=== PATIENT | male | born 1970 ===

== ENCOUNTER 2018-09-19 04:19 | Inpatient (IN) | payer BC ==
[2018-09-19] MEDS ORDERED: NACL 0.9% 1000 ML 1,000 ML ONE (04:39)
[2018-09-19] MEDS ORDERED: NACL 0.9% 1000 ML 1,000 ML IV ONE (04:47)
[2018-09-19] MEDS ORDERED: SOLU-Medrol ONE (05:15)
--- NOTE | 2018-09-19 05:15 | XRay Report ---
PROCEDURE: XR CHEST 1V AP TECHNIQUE: A portable upright view the chest was obtained. HISTORY: Syncope COMPARISONS: None FINDINGS: The heart size and mediastinum appear normal. The lungs are clear. Pleural fluid is not seen. The bon es and soft tissues appear normal. IMPRESSION: Within normal limits.. This document is electronically signed by Bryon Durbin MD., September 19 2018 05:12:58 AM ET
[2018-09-19 05:18] LABS: Basophils % (Auto) 0.5 % (0.0-1.8); Eosinophils # (Auto) 0.2 K/mm3 (0.0-0.4); Eosinophils % (Auto) 2.6 % (0.0-4.3); Hematocrit 38.7 % (35.5-45.6); Lymphocytes % (Auto) 21.9 % (13.4-35.0); Mean Corpuscular HGB Conc 34 % (32-34); Mean Corpuscular Volume 91 fl (84-94); Monocytes # (Auto) 0.6 K/mm3 (0.0-0.8); Monocytes % (Auto) 6.9 % (0.0-7.3); Platelet Count 347 K/mm3 (140-440); Red Blood Count 4.27 M/mm3 (3.65-5.03)
--- NOTE | 2018-09-19 05:23 | Cat Scan Report ---
PROCEDURE: CT HEAD/BRAIN WO CON TECHNIQUE: Computerized tomography of the head was performed without contrast material. HISTORY: Syncope COMPARISONS: None . FINDINGS: Skull and scalp: Normal . Paranasal sinuses: Normal . Ventricles and subarachnoid spaces: Normal . Cerebrum: No evidence of hemorrhage, acute infarction or mass . Cerebellum and brainstem: No evidence of hemorrhage, acute infarction or mass . Vasculature: Normal . Other: None . ASPECTS: 10 IMPRESSION: There is no evidence of acute intracranial process . This document is electronically signed by Mallorie Doran DO., September 19 2018 05:21:38 AM ET
[2018-09-19 05:33] LABS: Alanine Aminotransferase 15 units/L (7-56); Albumin 3.9 g/dL (3.9-5); BUN/Creatinine Ratio 12; Blood Urea Nitrogen 22 mg/dL (9-20); Calcium 8.1 mg/dL (8.4-10.2); Hemolysis Index 4
--- NOTE | 2018-09-19 06:17 | Emergency Department Report ---
ED General Adult HPI - General Chief complaint: Syncope Stated complaint: BLOOD PRESSURE ISSUES Time Seen by Provider: 09/19/18 06:16 Source: patient, EMS Mode of arrival: Stretcher Limitations: No Limitations - History of Present Illness Initial comments: This is a 48-year-old man who is reported to have had 4 syncopal episodes per his family. At least one of them was associated with a generalized seizure. Patient did bump his head during that event. However, he does not complain of headache neck pain back pain or any other injury. He denies biting his tongue. He was not incontinent. Patient states that he was placed on a new blood pressure medicine one to 2 weeks ago. He was found to be somewhat hypotensive when he arrived. Prior to my encounter he was given a fluid bolus. On my counter he had a normal blood pressure and essentially was asymptomatic. He has no prior history of seizure. -: Gradual, minutes(s) Location: head (it is sad but does not complain of headache) Consistency: now resolved Improves with: none Worsens with: none Associated Symptoms: denies other symptoms, weakness (weak and dizzy this morning) Treatments Prior to Arrival: none - Related Data Allergies Allergy/AdvReac Type Severity Reaction Status Date / Time No Known Allergies Allergy Unverified 09/19/18 04:22 ED Review of Systems ROS: Stated complaint: BLOOD PRESSURE ISSUES Other details as noted in HPI Constitutional: weakness, other. denies: chills, fever Eyes: denies: eye pain, eye discharge, vision change ENT: denies: ear pain, throat pain Respiratory: denies: cough, shortness of breath, wheezing Cardiovascular: denies: chest pain, palpitations Endocrine: no symptoms reported Gastrointestinal: denies: abdominal pain, nausea, diarrhea Genitourinary: denies: urgency, dysuria Musculoskeletal: denies: back pain, joint swelling, arthralgia Skin: denies: rash, lesions Neurological: as per HPI (seizure). denies: headache, weakness, paresthesias Psychiatric: denies: anxiety, depression Hematological/Lymphatic: denies: easy bleeding, easy bruising ED Past Medical Hx - Past Medical History Previous Medical History?: Yes Hx Hypertension: Yes - Surgical History Past Surgical History?: Yes Additional Surgical History: appendectomy - Social History Smoking Status: Never Smoker Substance Use Type: Alcohol ED Physical Exam - General Limitations: No Limitations General appearance: alert, in no apparent distress - Head Head exam: Present: atraumatic, normocephalic - Eye Eye exam: Present: normal appearance. Absent: scleral icterus - ENT ENT exam: Present: mucous membranes moist - Neck Neck exam: Present: normal inspection - Respiratory Respiratory exam: Present: normal lung sounds bilaterally. Absent: respiratory distress - Cardiovascular Cardiovascular Exam: Present: regular rate, normal rhythm. Absent: systolic murmur, diastolic murmur, rubs, gallop - GI/Abdominal GI/Abdominal exam: Present: soft, normal bowel sounds. Absent: distended, tenderness, guarding, rebound, rigid - Rectal Rectal exam: Present: deferred - Extremities Exam Extremities exam: Present: normal inspection - Back Exam Back exam: Present: normal inspection - Neurological Exam Neurological exam: Present: alert, oriented X3, CN II-XII intact, other (NIH stroke score is 0). Absent: motor sensory deficit - Psychiatric Psychiatric exam: Present: normal affect, normal mood - Skin Skin exam: Present: warm, dry, intact, normal color. Absent: rash ED Course Vital Signs 09/19/18 09/19/18 04:22 04:28 Temperature 98.2 F Pulse Rate 72 Respiratory 20 20 Rate Blood Pressure 91/40 O2 Sat by Pulse 98 100 Oximetry - Reevaluation(s) Reevaluation #1: Pressure improved. Patient was given Keppra. He was admitted to the hospitalist service for further Evaluation. Chest x-ray and CT of his head showed nothing acute. 09/19/18 08:32 ED Medical Decision Making - Lab Data Result diagrams: 09/19/18 04:59 09/19/18 04:59 Laboratory Results - last 24 hr 09/19/18 09/19/18 09/19/18 04:59 04:59 04:59 WBC 9.3 RBC 4.27 Hgb 13.0 Hct 38.7 MCV 91 MCH 31 MCHC 34 RDW 13.0 L Plt Count 347 Lymph % (Auto) 21.9 [place] % (Auto) 6.9 Eos % (Auto) 2.6 Baso % (Auto) 0.5 Lymph # 2.0 [place] # 0.6 Eos # 0.2 Baso # 0.0 Seg Neutrophils % 68.1 Seg Neutrophils # 6.3 Sodium 142 Potassium 4.1 Chloride 103.6 Carbon Dioxide 27 Anion Gap 16 BUN 22 H Creatinine 1.8 H Estimated GFR 40 BUN/Creatinine Ratio 12 Glucose 143 H Calcium 8.1 L Total Bilirubin 0.30 AST 15 ALT 15 Alkaline Phosphatase 45 Troponin T < 0.010 Total Protein 6.6 Albumin 3.9 Albumin/Globulin Ratio 1.4 TSH 3.510 - EKG Data -: EKG Interpreted by Me EKG shows normal: sinus rhythm, axis, intervals, QRS complexes, ST-T waves Rate: normal - EKG Data Interpretation: other (nonspecific inferolateral changes) - Radiology Data Radiology results: report reviewed (CT head and chest x-ray no acute process) Critical care attestation.: If time is entered above; I have spent that time in minutes in the direct care o f this critically ill patient, excluding procedure time. ED Disposition Clinical Impression: Hypotensive episode, Generalized seizure Syncope Qualifiers: Syncope type: unspecified Qualified Code(s): R55 - Syncope and collapse Disposition: 09 OP ADMIT IP TO THIS HOSP Is pt being admited?: Yes Does the pt Need Aspirin: Yes Condition: Stable Instructions: Syncope (ED) Referrals: KILEY SYLVESTER [Other] - 3-5 Days Time of Disposition: 08:33
[2018-09-19] MEDS ORDERED: KEPPRA 1,000 MG/NS 0.75% 100ML 1,000 MG/100 ML BAG IV ONE (06:38)
[2018-09-19] MEDS ORDERED: ASPIRIN PO ONE (08:34)
[2018-09-19] MEDS ORDERED: ASPIRIN ONE (09:24)
--- NOTE | 2018-09-19 11:32 | History and Physical Report ---
History of Present Illness Date of examination: 09/19/18 Date of admission: 09/19/18 08:27 Chief complaint: Syncope/seizure History of present illness: 48-year-old male patient with significant past medical history of hypertension , his primary care physician and started on a new blood pressure medications for up to 5 weeks ago , presented to the emergency room with history of syncopal episodes 4 and witnessed seizure /seizure-like symptoms last night . Patient's witnessed syncope , and seizure-like activity , seizure lasted for a few seconds to half a minute , jerking movements , no bladder or bowel incontinence , nor vomiting , no postictal phase, patient did not have chest pain shortness of breath headache prior to, during and post seizure. Initial evaluation in the emergency room. CT head no acute abnormalities, chest x-ray negative, laboratory studies acute kidney injury Past History Past Medical History: hypertension Past Surgical History: appendectomy Social history: lives with family, full code. denies: smoking, alcohol abuse, prescription drug abuse Family history: hypertension Medications and Allergies Allergies Allergy/AdvReac Type Severity Reaction Status Date / Time No Known Allergies Allergy Unverified 09/19/18 04:22 Home Medications Medication Instructions Recorded Confirmed Last Taken Type Edarbyclor 40-12.5 mg Tablet 40 mg PO DAILY 09/19/18 09/19/18 Unknown History Review of Systems Constitutional: no weight loss, no weight gain Ears, nose, mouth and throat: no nasal congestion, no nasal discharge Cardiovascular: no chest pain, no palpitations, no shortness of breath Respiratory: no cough, no shortness of breath Gastrointestinal: no abdominal pain, no nausea, no vomiting Genitourinary Male: no dysuria, no hematuria Musculoskeletal: no myalgias, no arthritis Integumentary: no rash, no lesions Neurological: seizures, syncope Psychiatric: no anxiety, no depression Endocrine: no cold intolerance, no heat intolerance, no polydipsia, no polyuria Hematologic/Lymphatic: no easy bruising, no easy bleeding Allergic/Immunologic: no urticaria, no allergic rhinitis Exam - Constitutional Vitals: Temp Pulse Resp BP Pulse Ox 98.2 F 73 21 131/68 96 09/19/18 04:22 09/19/18 08:45 09/19/18 08:45 09/19/18 08:45 09/19/18 08:45 General appearance: Present: no acute distress, well-nourished, obese - EENT Eyes: Present: PERRL, EOM intact - Neck Neck: Present: supple, normal ROM - Respiratory Respiratory effort: normal Respiratory: bilateral: diminished, negative: rales, rhonchi, wheezing - Cardiovascular Rhythm: regular Heart Sounds: Present: S1 & S2 - Extremities Extremities: no ischemia, pulses intact - Abdominal General gastrointestinal: Present: soft, non-tender, non-distended, normal bowel sounds - Integumentary Integumentary: Present: clear, warm - Musculoskeletal Musculoskeletal: strength equal bilaterally - Psychiatric Psychiatric: appropriate mood/affect, cooperative - Neurologic Neurologic: CNII-XII intact, moves all extremities Results - Labs CBC & Chem 7: 09/19/18 04:59 09/19/18 04:59 Labs: Abnormal lab results 09/19/18 09/19/18 Range/Units 04:59 04:59 RDW 13.0 L (13.2-15.2) % BUN 22 H (9-20) mg/dL Creatinine 1.8 H (0.8-1.5) mg/dL Glucose 143 H (75-100) mg/dL Calcium 8.1 L (8.4-10.2) mg/dL Assessment and Plan --Syncope: Probably vasovagal, fall precautions Syncope workup, carotid Doppler, echocardiogram --Atypical Seizure like activity: Probable syncope related No classic features of seizure, no bladder or bowel incontinence, no tongue bite No postictal phase, neurology following Seizure precautions, Ativan as needed Neuro does not recommend antiepileptic medication --JIHAN : Vasomotar nephropathy, gentle hydration Encourage increase oral fluids, avoid nephrotoxins If no improvement, consider nephrology evaluation --Obesity ;BMI 34.7 ; weight reduction When medically stable --DVT prophylaxis Lovenox Ambulate as tolerated,Follow syncope workup If negative and patient is stable and may be discharged home tomorrow Plan of care reviewed with the patient, his and family member at the bedside
[2018-09-19] MEDS ORDERED: ATIVAN IV PRN (11:37)
--- NOTE | 2018-09-19 15:53 | Progress Note ---
Subjective Date of service: 09/19/18 Interval history: patient seen and full consult note is dictated he has normal neuro exam and negative CT of the head labs show elevated creatinine BP med I suspect was contributing factor... this clearly was not a seizure Objective - Vital Sign Vital Signs - 12hr 09/19/18 09/19/18 09/19/18 04:22 04:28 04:44 Temperature 98.2 F Pulse Rate 72 93 H Respiratory 20 20 17 Rate Blood Pressure 91/40 O2 Sat by Pulse 98 100 Oximetry 09/19/18 09/19/18 09/19/18 04:45 05:55 06:00 Temperature Pulse Rate 84 95 H Respiratory 23 27 H Rate Blood Pressure 106/72 144/67 O2 Sat by Pulse 99 99 Oximetry 09/19/18 09/19/18 09/19/18 06:15 06:30 06:45 Temperature Pulse Rate 97 H 98 H 92 H Respiratory 17 18 22 Rate Blood Pressure 129/73 133/71 134/68 O2 Sat by Pulse 99 98 99 Oximetry 09/19/18 09/19/18 09/19/18 07:00 07:15 07:30 Temperature Pulse Rate 91 H 90 84 Respiratory 22 23 27 H Rate Blood Pressure 121/79 126/72 124/70 O2 Sat by Pulse 98 99 99 Oximetry 09/19/18 09/19/18 09/19/18 07:45 08:00 08:15 Temperature Pulse Rate 83 83 78 Respiratory 22 17 18 Rate Blood Pressure 121/68 122/72 127/67 O2 Sat by Pulse 98 98 100 Oximetry 09/19/18 09/19/18 09/19/18 08:30 08:45 09:00 Temperature Pulse Rate 78 73 82 Respiratory 25 H 21 24 Rate Blood Pressure 126/75 131/68 137/70 O2 Sat by Pulse 99 96 96 Oximetry 09/19/18 09/19/18 09/19/18 09:11 09:21 11:44 Temperature 98.3 F Pulse Rate 84 87 83 Respiratory 15 22 20 Rate Blood Pressure 137/70 137/70 118/72 O2 Sat by Pulse 99 99 98 Oximetry - Laboratory Findings CBC and BMP: 09/19/18 04:59 09/19/18 04:59 Abnormal Lab Findings: Abnormal Labs 09/19/18 09/19/18 04:59 04:59 RDW 13.0 L BUN 22 H Creatinine 1.8 H Glucose 143 H Calcium 8.1 L
--- NOTE | 2018-09-19 16:41 | Vascular Lab Report ---
PROCEDURE: VL CAROTID DUPLEX BILAT TECHNIQUE: Ultrasound of the bilateral carotid arteries. Reported ICA Stenosis % per the NASCET crite [place]. HISTORY: syncope COMPARISONS: None FINDINGS: PLAQUE DISTRIBUTION: There is minimal plaque formation present bilaterally in the carotid bulbs and p roximal internal carotid arteries. VELOCITIES: RIGHT ICA peak systolic velocity (cm/sec): 110 ICA end diastolic velocity (cm/sec): 36 CCA peak systolic velocity (cm/sec): 146 ECA peak systolic velocity (cm/sec): 126 ICA/CCA systolic velocity ratio (cm/sec): 0.75 Right vertebral: Antegrade ICA STENOSIS ESTIMATION: < 50 % LEFT ICA peak systolic velocity (cm/sec): 99 ICA end diastolic velocity (cm/sec): 27 CCA peak systolic velocity (cm/sec): 152 ECA peak systolic velocity (cm/sec): 128 ICA/CCA systolic velocity ratio (cm/sec): 0.65 Left vertebral: Antegrade ICA STENOSIS ESTIMATION: < 50 % IMPRESSION: No clinically significant areas of stenosis noted bilaterally. ICA Stenosis % per the NASCET criteria is < 50 % on the right and < 50 % on the left. This document is electronically signed by Leisa Rolle MD., September 19 2018 04:39:50 PM ET
[2018-09-19] MEDS ORDERED: APRESOLINE IV PRN (18:01)
[2018-09-19] MEDS: NACL 0.9% 1000 ML 1,000 ML IV SCH (20:34)
[2018-09-19] MEDS: PEPCID PO SCH (22:31)
--- NOTE | 2018-09-20 01:14 | Consultation ---
HISTORY OF PRESENT ILLNESS: This is a 48-year-old black male that had been on a new dose of Edarbyclor 40/25, had been once daily 5 weeks into the treatment for hypertension, presents with episode of syncope, which occurred while he was getting up to walk. He apparently felt very thirsty, was at home in bed about 3:00 a.m. When he went to get up, he abruptly passed out and found himself on the ground, sweating profusely. He has not had spells like this in the past. He has on presentation a hematocrit of 38.7, creatinine of 1.8, and calcium of 8.1. His sodium is 142, his potassium is 4.1. TSH is 3.51. The patient when entering the hospital had a calcium of 8.1 and a glucose of 143. Review of his laboratory findings showed that he has an echocardiogram, it has not yet been interpreted. I have reviewed his CT scan of the head and CT scan does not show any remarkable abnormalities. Normal davis and white matter, frontal lobes are unremarkable. The ventricular system is normal in size and shape, pineal gland is in the mid position. Brainstem structures did not show any abnormalities. PHYSICAL EXAMINATION: Impression of his neurological examination: VITAL SIGNS: His current blood pressure is 137/70, pulse rate is 80, respirations 18, temperature is 98 degrees. GENERAL: He is fully alert, oriented, appropriate. NEUROLOGIC: Cranial nerves II through XII are intact. [employer] strength equal. Neck is Supple. Cranial nerves are intact. No tremors, no asterixis. No focal motor rigidity is present. IMPRESSION: This patient likely had vasovagal syncope, meets all the criteria, slight premonitory symptom, thirstiness, autonomic symptom and then the abrupt passing out with a documented blood pressure at the scene of 80/40. Witnesses did not detect any focal jerking. There was no loss of bowel or bladder continence. No evidence of any seizure. He was slightly confused afterwards, but does not have any focal neurological findings or signs. Of note is the fact that his creatinine is 1.8, which is slightly elevated. This may be contributed to by taking a diuretic. The patient should have his blood pressure medicines adjusted per Cardiology. Okay to discharge the patient. I would not start him on any seizure medicine after reviewing the history, as there is no family history of epilepsy. JOB# [id number] VIC/FERCHO
[2018-09-20] MEDS: NACL 0.9% 1000 ML 1,000 ML IV SCH (04:58)
[2018-09-20 06:50] LABS: BUN/Creatinine Ratio 12; Blood Urea Nitrogen 11 mg/dL (9-20); Calcium 8.4 mg/dL (8.4-10.2); Hemolysis Index 4
[2018-09-20] MEDS ORDERED: LOVENOX SUB-Q SCH ×2 (10:00)
--- NOTE | 2018-09-20 10:37 | Discharge Summary ---
Providers - Providers Date of Admission: 09/19/18 08:27 Date of discharge: 09/20/18 Attending physician: TRISTIAN JEFFERSON 09/19/18 15:29 Consult to Physician [CONS] Routine Comment: Consulting Provider: KILEY BUI Physician Instructions: Reason For Exam: seizure/syncope Hospitalization Reason for admission: syncope Condition: Stable Pertinent studies: CT head without contrast; no acute abnormality Carotid Doppler; (50% stenosis, not hemodynamically significant] Echocardiogram; LVEF 60-65%, LV function normal Chest x-ray; within normal limits Hospital course: 48-year-old male patient with significant past medical history of hypertension , his primary care physician and started on a new blood pressure medications for up to 5 weeks ago , presented to the emergency room with history of syncopal episodes 4 and witnessed jerking movements [?seizure-like ] the night before admission., Patient had extensive syncope workup which was negative, evaluated by neurology, feels that the jerky movements are syncope related Not seizures, patient does not need antiseizure medications, orthostatics are negative, no new episodes of syncope are jerking movements Noted to have acute kidney injury secondary to vasomotor nephropathy, resolved with IV hydration Today patient is comfortable and ambulatory, no symptoms Patient's blood pressures remained within range, did not need any blood pressure medications Advised to hold the new blood pressure medication, and check with primary care physician before resuming Patient and his verbalized understanding Patient is hemodynamically and clinically stable at discharge Discharge diagnosis; --Syncope: Autonomic instability Probably vasovagal, fall precautions Syncope workup, carotid Doppler hemodynamically significant stenosis, echocardiogram within normal limits --Jerking movements/? Atypical Seizure like activity: Probable syncope related, No classic features of seizure, no bladder or bowel incontinence, no tongue bite No postictal phase, neurology evaluated, not seizures No need for antiepileptic medication --JIHAN : Vasomotar nephropathy, resolved After IV hydration --Obesity ;BMI 34.7 ; weight reduction When medically stable --DVT prophylaxis Lovenox Cleared by neurology to discharge and follow up in the office For further evaluation and management if needed Disposition: TO HOME OR SELFCARE Time spent for discharge: 32 min Core Measure Documentation - Palliative Care Palliative Care/ Comfort Measures: Not Applicable - Core Measures Any of the following diagnoses?: none Exam - Constitutional Vitals: Temp Pulse Resp BP Pulse Ox 98.0 F 73 17 120/70 98 09/20/18 05:45 09/20/18 05:45 09/20/18 05:45 09/20/18 05:45 09/20/18 05:45 General appearance: Present: no acute distress, well-nourished - EENT Eyes: Present: PERRL, EOM intact - Neck Neck: Present: supple, normal ROM - Respiratory Respiratory effort: normal Respiratory: bilateral: diminished, negative: rales, rhonchi, wheezing - Cardiovascular Rhythm: regular Heart Sounds: Present: S1 & S2 - Extremities Extremities: no ischemia, No edema - Abdominal General gastrointestinal: Present: soft, non-tender, non-distended, normal bowel sounds - Integumentary Integumentary: Present: clear, warm - Musculoskeletal Musculoskeletal: strength equal bilaterally - Psychiatric Psychiatric: appropriate mood/affect - Neurologic Neurologic: CNII-XII intact, moves all extremities Plan Activity: no restrictions, fall precautions Diet: low salt Additional Instructions: No prescriptions needed. Check with primary care physician for close monitoring of your blood pressures. Call medical records and request for pending' Echocardiogram' report on Saturday and discuss with primary care physician Follow up with: KILEY SYLVESTER [Other] - 3-5 Days KILEY BUI MD [Staff Physician] - 7 Days
[2018-09-20] MEDS: PEPCID PO SCH (12:10)
--- NOTE | 2018-09-20 13:08 | Progress Note ---
Subjective Date of service: 09/20/18 Interval history: BP stable no need for driving restrictions ther syncope was vasovagal based on description and witnessed attack may go and follow up in the office Objective - Vital Sign Vital Signs - 12hr 09/20/18 09/20/18 04:56 05:45 Temperature 98.1 F 98.0 F Pulse Rate 84 73 Respiratory 20 17 Rate Blood Pressure 120/70 Blood Pressure 113/57 [Right] O2 Sat by Pulse 99 98 Oximetry - Laboratory Findings CBC and BMP: 09/19/18 04:59 09/20/18 05:39 Abnormal Lab Findings: Abnormal Labs 09/19/18 09/19/18 09/20/18 04:59 04:59 05:39 RDW 13.0 L BUN 22 H Creatinine 1.8 H Glucose 143 H 116 H Calcium 8.1 L
[2018-09-20 13:46] VITALS: BP 156/82
== END 2018-09-20 14:00 | disposition home or self-care (01) | DRG 73 ==
LOC: ED 04:19 → 3A 08:27
PROVIDERS: ADMIT Internal Medicine; ATTEND Internal Medicine
DX: G90.8 Other disorders of autonomic nervous system (principal); N17.0 Acute kidney failure with tubular necrosis; R56.9 Unspecified convulsions; E66.9 Obesity, unspecified; I95.9 Hypotension, unspecified; I10 Essential (primary) hypertension; Z90.49 Acquired absence of other specified parts of digestive tract; Z82.49 Family history of ischemic heart disease and other diseases of the circulatory system; Z68.36 Body mass index [BMI] 36.0-36.9, adult
CPT/HCPCS: 36415; 70450; 71045; 80048; 80053; 84443; 84484; 85025; 93005; 93010; 93306; 93880; 96365; 96375; G0378; J1650; J2930; J7030